=== PATIENT | female | born 1955 | race Caucasian/White ===

== ENCOUNTER 2017-11-10 11:28 | Day surgery (SDC) | payer BC ==
[~2017-11-10] VITALS: Ht 154.9 cm; Wt 88.1 kg
[~2017-11-10 11:28] MED LIST: FURO40; LORCET 5-325 M1 EACH; LOSA50; METO50ER; POTA10T
== END 2017-11-10 13:52 | disposition home or self-care (01) ==
LOC: ORSCSDS 11:28
DX: Z12.11 Encounter for screening for malignant neoplasm of colon (principal); D12.5 Benign neoplasm of sigmoid colon; D12.3 Benign neoplasm of transverse colon; K57.30 Diverticulosis of large intestine without perforation or abscess without bleeding; I10 Essential (primary) hypertension; Z87.891 Personal history of nicotine dependence; E66.01 Morbid (severe) obesity due to excess calories; Z68.38 Body mass index [BMI] 38.0-38.9, adult; Z79.899 Other long term (current) drug therapy
CPT/HCPCS: 88305; J0330; J1980; J2405; J7120

== ENCOUNTER → 2018-11-03 | Outpatient (CLI) | payer BC ==
[2018-11-03 17:38] LABS: BASOPHILS ABSOLUTE AUTO 0.04 K/mm3 (0.00-0.23); BASOPHILS PERCENT AUTO 1 % (0-2); EOSINOPHILS ABSOLUTE AUTO 0.26 K/mm3 (0.00-0.68); EOSINOPHILS PERCENT AUTO 5 % (0-6); Hematocrit 42.6 % (33.0-51.0); Hemoglobin 14.3 g/dL (11.5-16.0); IMMATURE GRAN ABSOLUTE AUTO 0.01 K/mm3 (0.00-0.10); IMMATURE GRAN PERCENT AUTO 0 % (0-1); LYMPHOCYTES ABSOLUTE AUTO 1.83 K/mm3 (0.84-5.20); LYMPHOCYTES PERCENT AUTO 32 % (21-46); MONOCYTES ABSOLUTE AUTO 0.59 K/mm3 (0.16-1.47); MONOCYTES PERCENT AUTO 10 % (4-13); Mean Corpuscular HGB 28.9 pg (26.0-34.0); Mean Corpuscular HGB Conc 33.6 g/dL (31.5-36.5); Mean Corpuscular Volume 86 fL (80-100); NEUTROPHILS ABSOLUTE AUTO 2.95 K/mm3 (1.96-9.15); NEUTROPHILS PERCENT AUTO 52 % (41-73); Platelet Count 289 K/mm3 (150-400); RDW Coefficient Variation 13.2 % (11.7-14.2); RDW Standard Deviation 40.7 fL (35.1-46.3); Red Blood Cell Count 4.94 M/mm3 (3.80-5.20); White Blood Cell Count 5.68 K/mm3 (4.00-11.30)
[2018-11-03 18:30] LABS: Free Thyroxine 0.97 ng/dL (0.70-1.60)
[2018-11-03 18:31] LABS: Alanine Aminotransfer (ALT/SGP 36 U/L (12-78); Albumin/Globulin Ratio 1.1 (0.8-1.8); Alk Phos 109 U/L (50-136); Anion Gap 6 mmol/L (6-16); Aspartate Aminotrans (AST/SGOT 18 U/L (12-37); Bilirubin, Total 0.7 mg/dL (0.1-1.0); Blood Urea Nitrogen 21 mg/dL (8-24); Bun/Creatinine Ratio 30.2 (12.0-20.0); CHOL/HDL RATIO 2.9; CO2, Blood 31 mmol/L (21-32); Calcium, Blood 8.9 mg/dL (8.5-10.1); Chloride, Blood 104 mmol/L (98-108); Cholesterol 203 mg/dL (50-200); Globulin, Blood 3.6 g/dL (2.2-4.0); Glomerular Filtration Rate >60 (60-); Glucose, Blood 92 mg/dL (70-99); HDL Cholesterol 70 mg/dL (>39); LDL/HDL RATIO 1.7; Low Density Lipoprotein Chol 116 mg/dL (0-110); Potassium, Blood 3.7 mmol/L (3.5-5.5); Sodium, Blood 141 mmol/L (136-145); Total Protein, Blood 7.6 g/dL (6.4-8.2); Triglycerides 84 mg/dL (30-160); Very Low Density Lipoprot Chol 16 mg/dL (6-32)
== END ==
LOC: LAB 17:15 → LAB SHORT 17:15
PROVIDERS: Hospitalist
DX: E78.00 Pure hypercholesterolemia, unspecified (principal); I10 Essential (primary) hypertension
CPT/HCPCS: 80053; 80061; 84439; 84443; 85025

== ENCOUNTER 2019-12-06 09:18 | Day surgery (SDC) | payer BC ==
--- NOTE | 2019-12-06 11:05 | NUR ---
TRANSPORTED PT FROM CT SCAN TO ROOM 203 [facility] DIFFICULT[facility]. VSS, PT DENIES QUESTIONS OR CONCERNS. OFFERED FOOD AND FLUID. SUPPLIED WARM BALNKETS. PT WORE MASK IN TRANSITION TO THE FLOOR.
--- NOTE | 2019-12-06 12:24 | NUR ---
Discharge instructions reviewed with patient. Patient verbalizes understanding. Copy given to patient to take home. taking pt back to ct scan for follow up. pt biopsy site remained without swelling or bleeding t/o recovery. pt was mildly sob with activity to bathroom. recovery of sats where within 30sec. sat went down to 91% then back up to 96% w/o needing supplemental oxygen.
== END 2019-12-06 22:46 | disposition home or self-care (01) ==
LOC: CT 09:18
DX: C34.12 Malignant neoplasm of upper lobe, left bronchus or lung (principal); E27.8 Other specified disorders of adrenal gland; E87.6 Hypokalemia; I10 Essential (primary) hypertension; E78.5 Hyperlipidemia, unspecified; Z87.891 Personal history of nicotine dependence; Z79.899 Other long term (current) drug therapy
CPT/HCPCS: 32405; 71045; 77012

== ENCOUNTER 2019-12-28 15:39 | Inpatient (IN) | payer BC ==
[~2019-12-28] VITALS: Ht 154.9 cm; Wt 83.1 kg
[2019-12-28 16:43] LABS: BASOPHILS ABSOLUTE AUTO 0.05 K/mm3 (0.00-0.23); BASOPHILS PERCENT AUTO 0 % (0-2); EOSINOPHILS ABSOLUTE AUTO 0.03 K/mm3 (0.00-0.68); EOSINOPHILS PERCENT AUTO 0 % (0-6); Hematocrit 27.6 % (33.0-51.0); Hemoglobin 8.7 g/dL (11.5-16.0); IMMATURE GRAN ABSOLUTE AUTO 0.14 K/mm3 (0.00-0.10); IMMATURE GRAN PERCENT AUTO 1 % (0-1); LYMPHOCYTES ABSOLUTE AUTO 0.53 K/mm3 (0.84-5.20); LYMPHOCYTES PERCENT AUTO 4 % (21-46); MONOCYTES ABSOLUTE AUTO 0.49 K/mm3 (0.16-1.47); MONOCYTES PERCENT AUTO 4 % (4-13); Mean Corpuscular HGB 25.7 pg (26.0-34.0); Mean Corpuscular HGB Conc 31.5 g/dL (31.5-36.5); Mean Corpuscular Volume 82 fL (80-100); Mean Platelet Volume 9.3 fL (9.1-12.4); NEUTROPHILS ABSOLUTE AUTO 12.31 K/mm3 (1.96-9.15); NEUTROPHILS PERCENT AUTO 91 % (41-73); Platelet Count 536 K/mm3 (150-400); RDW Coefficient Variation 14.5 % (11.7-14.2); RDW Standard Deviation 41.9 fL (35.1-46.3); Red Blood Cell Count 3.38 M/mm3 (3.80-5.20); White Blood Cell Count 13.55 K/mm3 (4.00-11.30)
[2019-12-28 17:01] LABS: Anion Gap 6 mmol/L (6-16); Blood Urea Nitrogen 8 mg/dL (8-24); Bun/Creatinine Ratio 12.9 (12.0-20.0); CO2, Blood 26 mmol/L (21-32); Calcium, Blood 8.6 mg/dL (8.5-10.1); Chloride, Blood 109 mmol/L (98-108); Creatinine, Blood 0.62 mg/dL (0.40-1.00); Glomerular Filtration Rate >60 (60-); Glucose, Blood 122 mg/dL (70-99); Potassium, Blood 3.1 mmol/L (3.5-5.5); Sodium, Blood 141 mmol/L (136-145)
[2019-12-28] MEDS ORDERED: Percocet 5-3251 EACH PO (18:05)
[2019-12-28] MEDS ORDERED: FURO40 PO (18:05)
[2019-12-28] MEDS ORDERED: POTCHL20ER PO (18:05)
[2019-12-28] MEDS ORDERED: METO50 PO (18:06)
[2019-12-28] MEDS ORDERED: LOSARTAN POTAS100 MG PO (18:07)
[2019-12-28] MEDS ORDERED: AMLODIPINE BESY10 MG PO (18:08)
[2019-12-28] MEDS ORDERED: IBU800 M1 PO (18:09)
[2019-12-28] MEDS ORDERED: VITAMIN D350 MCG PO (18:30)
[2019-12-28] MEDS ORDERED: Slo-Niacin250 MG PO (18:30)
[2019-12-28] MEDS ORDERED: B-121000 MC3 PO (18:31)
[2019-12-28] MEDS ORDERED: Fish Oil 10001000 MG PO (18:31)
[2019-12-28] MEDS ORDERED: ALLER-FEX180 MG PO (18:33)
[2019-12-28 18:34] LABS: Alanine Aminotransfer (ALT/SGP 21 U/L (12-78); Albumin, Blood 2.4 g/dL (3.4-5.0); Albumin/Globulin Ratio 0.6 (0.8-1.8); Alk Phos 137 U/L (50-136); Aspartate Aminotrans (AST/SGOT 16 U/L (12-37); Bilirubin, Direct <0.1 mg/dL (0.0-0.3); Bilirubin, Indirect Unable to Calculate mg/dL (0.1-0.7); Bilirubin, Total 0.3 mg/dL (0.1-1.0); Globulin, Blood 4.3 g/dL (2.2-4.0); Total Protein, Blood 6.7 g/dL (6.4-8.2)
[2019-12-28] MEDS ORDERED: Daily Multiple1 EACH PO (18:34)
[2019-12-28] MEDS ORDERED: Glucosamine H1500 MG PO (18:35)
[2019-12-28] MEDS ORDERED: OCUSIGHT PO (18:36)
[2019-12-28 19:16] LABS: Magnesium, Blood 2.1 mg/dL (1.6-2.4)
[2019-12-28 19:33] LABS: Phosphorus, Blood 3.4 mg/dL (2.5-4.9)
[2019-12-28 19:39] LABS: Percent Saturation 7.9 % (15.0-50.0)
[2019-12-28 20:00] LABS: International Normalized Ratio 1.13
[2019-12-28 20:26] LABS: International Normalized Ratio 1.13
[2019-12-28] MEDS ORDERED: OXYC10ER PO (20:45)
--- NOTE | 2019-12-29 04:18 | NUR ---
SHIFT SUMMARY PT WAS ADMITTED 12/28/19 APPROX 2029 WITH L FEMUR FX. PAIN HAS BEEN MANAGED WITH IV PAIN MED PER ORDER; SEE EMAR. DISCUSSED PAIN MANAGEMENT WITH HOSPITALIST CARDIAC RN. BIOX IN PLACE; PT ON 1-3L O2 NC MAINTAINING O2 >92%. TELE IN PLACE. EXTERNAL FEMALE CATHETER HAS BEEN USED DURING THE NIGHT. POTASSIUM WAS LOW ON ADMIT; PT RECEIVED IV POTASSIUM PER ORDER; SEE EMAR. PT WAS ABLE TO GET SOME REST AFTER PAIN WAS CONTROLLED. HAS BEEN NPO SINCE MIDNIGHT PER ORDER.
[2019-12-29 04:49] LABS: BASOPHILS ABSOLUTE AUTO 0.03 K/mm3 (0.00-0.23); BASOPHILS PERCENT AUTO 0 % (0-2); EOSINOPHILS PERCENT AUTO 0 % (0-6); Hematocrit 27.6 % (33.0-51.0); Hemoglobin 8.4 g/dL (11.5-16.0); IMMATURE GRAN ABSOLUTE AUTO 0.19 K/mm3 (0.00-0.10); IMMATURE GRAN PERCENT AUTO 1 % (0-1); LYMPHOCYTES ABSOLUTE AUTO 0.72 K/mm3 (0.84-5.20); LYMPHOCYTES PERCENT AUTO 5 % (21-46); MONOCYTES ABSOLUTE AUTO 0.46 K/mm3 (0.16-1.47); MONOCYTES PERCENT AUTO 3 % (4-13); Mean Corpuscular HGB 25.1 pg (26.0-34.0); Mean Corpuscular HGB Conc 30.4 g/dL (31.5-36.5); Mean Corpuscular Volume 83 fL (80-100); Mean Platelet Volume 9.6 fL (9.1-12.4); NEUTROPHILS ABSOLUTE AUTO 13.55 K/mm3 (1.96-9.15); NEUTROPHILS PERCENT AUTO 91 % (41-73); Platelet Count 605 K/mm3 (150-400); RDW Coefficient Variation 14.4 % (11.7-14.2); Red Blood Cell Count 3.34 M/mm3 (3.80-5.20); White Blood Cell Count 14.95 K/mm3 (4.00-11.30)
[2019-12-29 05:06] LABS: Alanine Aminotransfer (ALT/SGP 20 U/L (12-78); Albumin, Blood 2.3 g/dL (3.4-5.0); Albumin/Globulin Ratio 0.5 (0.8-1.8); Alk Phos 128 U/L (50-136); Anion Gap 4 mmol/L (6-16); Aspartate Aminotrans (AST/SGOT 14 U/L (12-37); Bilirubin, Total 0.3 mg/dL (0.1-1.0); Blood Urea Nitrogen 11 mg/dL (8-24); Bun/Creatinine Ratio 22.8 (12.0-20.0); CO2, Blood 27 mmol/L (21-32); Calcium, Blood 8.9 mg/dL (8.5-10.1); Chloride, Blood 109 mmol/L (98-108); Creatinine, Blood 0.48 mg/dL (0.40-1.00); Globulin, Blood 4.3 g/dL (2.2-4.0); Glomerular Filtration Rate >60 (60-); Glucose, Blood 152 mg/dL (70-99); Potassium, Blood 4.8 mmol/L (3.5-5.5); Sodium, Blood 140 mmol/L (136-145); Total Protein, Blood 6.6 g/dL (6.4-8.2)
--- NOTE | 2019-12-29 05:53 | NUR ---
HEART RATE RN NOTIFIED BY TELE MONITOR OF HEART RATE TEMPORARILY INCREASING FROM 80'S TO 150'S FOR APPROX 6 SECONDS THEN BACK TO 80'S. PRINT OUT SENT TO FLOOR AND PUT IN PT CHART. HOSPITALIST NOTIFIED. NO FURTHER ORDERS. WCTM.
--- NOTE | 2019-12-29 12:16 | NUR ---
History, Chart, Medications and Allergies reviewed before start of procedure. Patient confirms NPO status and agrees with scheduled surgery. Pre-Op teaching done. Pt verbalizes understanding. LS DIMINISHED T/O. PT APPEARS SOB WITH SPEAKING BUT DENIES FEELING SOB. PT UNABLE TO SPEAK IN FULL SENTENCES.
--- NOTE | 2019-12-29 12:42 | NUR ---
COMPRESSION STOCKINGS AND PAS STOCKINGS DEFERRED FOR SURGICAL STAFF ONCE PT IS SEDATED DUE TO PT LEGS EXTREMELY CLAMMY AND PT IS PAINFUL.
--- NOTE | 2019-12-29 13:07 | NUR ---
PT TO OR
--- NOTE | 2019-12-29 16:21 | NUR ---
PT ARRIVED TO UNIT FROM PACU REPORTS GONZALEZ IMPROVED, RATING 5/10. REPORTS L LOWER BACK PAIN AT 2/10. DRESSINGS TO LLE X3 CDI. VSS. TXA INFUSING PER ORDERS.
--- NOTE | 2019-12-29 16:38 | NUR ---
PT DECLINED OFFER FOR TYLENOL FOR GONZALEZ PAIN STATED FELT OKAY. TOLERATING CLEAR LIQUIDS.
--- NOTE | 2019-12-29 17:20 | NUR ---
SUMMARY PT ARRIVED BACK TO UNIT FROM PACU THIS AFTERNOON. A&OX4. REPORTS NO PAIN TO LLE. REPORTS GONZALEZ PAIN TOLERABLE. DENIES NEEDS FOR PAIN MEDS AT THIS TIME. ABLE TO MOVE LEGS AND REPORTS FULL SENSATION. WORKING ON COMPUTER. VSS. CALL LIGHT IN REACH. IV FLUIDS INFUSING PER ORDERS.
--- NOTE | 2019-12-29 18:07 | NUR ---
TURNED OVER CARE TO NIK Pendleton RN.
--- NOTE | 2019-12-30 04:53 | NUR ---
SHIFT SUMMARY POD 1 L FEMUR FX REPAIR AA0X4, VSS. PT ABLE TO AMBULATE TO RESTROOM WITH FWW. TOLERATES WELL REPORTS MINIMAL DISCOMFORT WITH MOVEMENT. DRESSINGS CDI. PT TITRATED TO 1L OXYGEN, SATS ABOVE 92% ENCOURAGED DEEP BREATHING. TOLERATING PO WELL. PT VOIDING WELL.
[2019-12-30 04:54] LABS: BASOPHILS ABSOLUTE AUTO 0.03 K/mm3 (0.00-0.23); BASOPHILS PERCENT AUTO 0 % (0-2); EOSINOPHILS PERCENT AUTO 0 % (0-6); Hematocrit 28.8 % (33.0-51.0); Hemoglobin 8.6 g/dL (11.5-16.0); IMMATURE GRAN ABSOLUTE AUTO 0.23 K/mm3 (0.00-0.10); IMMATURE GRAN PERCENT AUTO 1 % (0-1); LYMPHOCYTES ABSOLUTE AUTO 0.92 K/mm3 (0.84-5.20); LYMPHOCYTES PERCENT AUTO 5 % (21-46); MONOCYTES ABSOLUTE AUTO 1.01 K/mm3 (0.16-1.47); MONOCYTES PERCENT AUTO 5 % (4-13); Mean Corpuscular HGB 24.6 pg (26.0-34.0); Mean Corpuscular HGB Conc 29.9 g/dL (31.5-36.5); Mean Corpuscular Volume 82 fL (80-100); Mean Platelet Volume 9.3 fL (9.1-12.4); NEUTROPHILS ABSOLUTE AUTO 17.12 K/mm3 (1.96-9.15); NEUTROPHILS PERCENT AUTO 89 % (41-73); Platelet Count 647 K/mm3 (150-400); RDW Coefficient Variation 14.6 % (11.7-14.2); RDW Standard Deviation 42.6 fL (35.1-46.3); White Blood Cell Count 19.31 K/mm3 (4.00-11.30)
[2019-12-30 05:11] LABS: Anion Gap 5 mmol/L (6-16); Blood Urea Nitrogen 18 mg/dL (8-24); Bun/Creatinine Ratio 26.8 (12.0-20.0); CO2, Blood 27 mmol/L (21-32); Calcium, Blood 8.8 mg/dL (8.5-10.1); Chloride, Blood 108 mmol/L (98-108); Creatinine, Blood 0.67 mg/dL (0.40-1.00); Glomerular Filtration Rate >60 (60-); Glucose, Blood 107 mg/dL (70-99); Magnesium, Blood 2.2 mg/dL (1.6-2.4); Potassium, Blood 4.5 mmol/L (3.5-5.5); Sodium, Blood 140 mmol/L (136-145)
--- NOTE | 2019-12-30 10:29 | NUR ---
Pt sitting in chair upon arrival. Pt is A&O and reports a tolerable 3/10 pain in her leg from the surgery. Pt denies nause and anxiety. Pt appears mildly dyspneic as evidenced by short 3 to 4 word sentences and work of breathing when speaking. Engaged in therapeutic listening as Pt reports having cancer. Pt reports plan to start radiation treatment soon and eventually targeted iminuotherapy treatment. Listened as Pt reports her cancer is not curitive but can help slow the progression. Suggested the importance of planning for the future and having support in place for the days she needs assistance. Pt reports adequate support. Discussed consideration of advanced directive and the importance of assigning a healthcare warehouse representative. Pt reports recently obtaining an AD with her father's encouragement and plans to complete soon. Educated Pt on the 2 options of making AD official either by notary or 2 witnesses. Pt reports no concerns at this time and expresses appreciation of visit. Spoke with Bedside AKHIL Wolff and discussed case. Palliative Care will remain available.
--- NOTE | 2019-12-30 19:36 | NUR ---
SHIFT SUMMARY PT IS POD# 1 FROM A L FEMUR REPAIR. SHE HAS BEEN A 1 PERSON ASSIST T/O THE DAY. SHE IS ALERT AND ORIENTED. PAIN IS MANAGED WITH OXYCODONE AND TORADOL. PT REPORTS TORADOL IS MOST EFFECTIVE FOR PAIN MANAGEMENT. PLAN FOR DISCHARGE HOME WITH HOME HEALTH TOMORROW. PT IS TOLERATING FOOD AND FLUIDS. VSS. WILL MONITOR UNTIL REPORT TO ONCOMING RN.
--- NOTE | 2019-12-31 05:50 | NUR ---
SHIFT SUMMARY POD 2 L FEMUR REPAIR. AA0X4 VSS. PT TOLERATING PO WELL. DENIES NAUSEA AND REPORTS MINIMAL PAIN MEDICATED PER EMAR. DRESSING CDI. ON ROOM AIR, DENIES SHORTNESS OF BREATH. PLAN IS TO DC WITH HOME HEALTH TODAY.
[2019-12-31] MEDS ORDERED: ENOX40I SC (11:59)
--- NOTE | 2019-12-31 12:35 | NUR ---
DISCHARGE PT PROVIDED WITH WRITTEN AND VERBAL DISCHARGE INSTRUCTIONS. SHE REPORTED UNDERSTANDING INSTRUCTIONS. PT WAS SEEN BY NAHOMI VILLAREAL WITH HOME HEALTH; PT DECLINED HOME HEALTH. PT WAS EDUCATED THAT WE COULD GET A SCRIPT FOR THERAPY FROM DR. LESTER. PT DECLINED AND VERBALIZED SHE WOULD FOLLOW UP WITH HER ONCOLOGIST OR PCP FOR PHYSICAL THERAPY ORDERS; SINCE SHE DID NOT WISH TO WAIT ANY LONGER FOR DISCHARGE. PT WAS PROVIDED WITH DRESSINGS AND EDUCATED ABOUT INCISION CARE. LOVENOX [facility] WAS CALLED PT'S PHARMACY. PT WAS EDUCATED ABOUT ADMINISTERING LOVENOX INJECTIONS AND REPORTED FEELING COMFORTABLE WITH PROCESS. PT ESCORTED OUT IN W/C BY MICHELLE STUDENT NURSE. PT REPORTED PAIN MANAGED AT TIME OF DISCHARGE.
--- NOTE | 2019-12-31 12:36 | NUR ---
DISCHARGE PT RECIEVED EDUCATOIN ABOUT WOUND MANAGEMENT AND S/S OF INFECTION/COMPLICATIONS. SHE WAS INSTRUCTED ON DRESSING CHANGES AND THE NEW MEDICATOIN (LOVENOX). SHE PROVIDED VERBAL AND NONVERBAL RESPONSE FOR UNDERSTANDING THE DISHCHARGE INFORMATION. SHE WAS PROVIDED WITH 3 DRESSING CHANGES. SHE DECLINED HOME HEALTH AND SHE VERBALIZED THAT SHE WOULD FOLLOW UP WITH HER PHYSICIAN AND ONCOLOGIST FOR FURTHER ORDERS FOR PHYSICAL THERAPY. SHE HAS ALL OF HER BELONGINGS, SHE WAS ESCORTED OUT TO VEHICLE IN A W/C. SHE GOT INTO THE VEHICLE WITHOUT INCIDENT.
== END 2019-12-31 12:32 | disposition home or self-care (01) | DRG 480 ==
LOC: ER 15:39 → BC 19:10 → SURS 19:10
PROVIDERS: Emergency Medicine; Internal Medicine; Nurse Practitioner Acute Care; Orthopaedic Surgery; ADMIT Internal Medicine
PROC: 0QS734Z Reposition Left Upper Femur with Internal Fixation Device, Percutaneous Approach (ICD-10-PCS; principal; 2019-12-29 12:30)
DX: M84.552A Pathological fracture in neoplastic disease, left femur, initial encounter for fracture (principal); J18.9 Pneumonia, unspecified organism; J96.01 Acute respiratory failure with hypoxia; C34.90 Malignant neoplasm of unspecified part of unspecified bronchus or lung; C79.51 Secondary malignant neoplasm of bone; E87.6 Hypokalemia; I10 Essential (primary) hypertension; K59.03 Drug induced constipation; M17.0 Bilateral primary osteoarthritis of knee; E78.5 Hyperlipidemia, unspecified; Z87.891 Personal history of nicotine dependence; D50.0 Iron deficiency anemia secondary to blood loss (chronic)
CPT/HCPCS: 36415; 71045; 73552; 73700; 76377; 80048; 80053; 80076; 82607; 82728; 82746; 83540; 83550; 83605; 83735; 84100; 84145; 85025; 85610; 85730; 86850; 86900; 86901; 90732; 93005; 93010; 94762; 96374-59; 96375-59; 97110; 97116; 97162; 97165; 97535; 99285-25; A9270; A9270-GY; C1713; C1769; J0690; J0696; J1100; J1170; J1650; J1885; J2250; J2405; J2704; J3010; J3480; J7040; J7120

== ENCOUNTER 2020-01-16 14:21 | Inpatient (IN) | payer BC ==
[~2020-01-16] VITALS: Ht 152.4 cm; Wt 80.0 kg
[~2020-01-16 14:21] MED LIST changes: +ALLER-FEX180 MG PO; +AMLODIPINE BESY10 MG PO; +B-121000 MC3 PO; +Daily Multiple1 EACH PO; +ENOX40I SC; -FURO40; +FURO40 PO; +Fish Oil 10001000 MG PO; +Glucosamine H1500 MG PO; +IBU800 M1 PO; -LORCET 5-325 M1 EACH; -LOSA50; +LOSARTAN POTAS100 MG PO; +METO50 PO; -METO50ER; +OCUSIGHT PO; +Oxycodone HCl20 M1 PO; -POTA10T; +POTCHL20ER PO; +Percocet 5-3251 EACH PO; +Slo-Niacin250 MG PO; +VITAMIN D350 MCG PO
[2020-01-16 14:56] LABS: BASOPHILS ABSOLUTE AUTO 0.03 K/mm3 (0.00-0.23); BASOPHILS PERCENT AUTO 0 % (0-2); EOSINOPHILS ABSOLUTE AUTO 0.06 K/mm3 (0.00-0.68); EOSINOPHILS PERCENT AUTO 0 % (0-6); Hematocrit 28.2 % (33.0-51.0); Hemoglobin 8.5 g/dL (11.5-16.0); IMMATURE GRAN ABSOLUTE AUTO 0.27 K/mm3 (0.00-0.10); IMMATURE GRAN PERCENT AUTO 2 % (0-1); LYMPHOCYTES ABSOLUTE AUTO 0.47 K/mm3 (0.84-5.20); LYMPHOCYTES PERCENT AUTO 3 % (21-46); MONOCYTES ABSOLUTE AUTO 1.09 K/mm3 (0.16-1.47); MONOCYTES PERCENT AUTO 7 % (4-13); Mean Corpuscular HGB 23.7 pg (26.0-34.0); Mean Corpuscular HGB Conc 30.1 g/dL (31.5-36.5); Mean Corpuscular Volume 79 fL (80-100); Mean Platelet Volume 9.3 fL (9.1-12.4); NEUTROPHILS ABSOLUTE AUTO 13.21 K/mm3 (1.96-9.15); NEUTROPHILS PERCENT AUTO 87 % (41-73); Platelet Count 466 K/mm3 (150-400); RDW Coefficient Variation 14.8 % (11.7-14.2); RDW Standard Deviation 42.3 fL (35.1-46.3); Red Blood Cell Count 3.59 M/mm3 (3.80-5.20); White Blood Cell Count 15.13 K/mm3 (4.00-11.30)
[2020-01-16 15:08] LABS: Alanine Aminotransfer (ALT/SGP 32 U/L (12-78); Albumin, Blood 2.2 g/dL (3.4-5.0); Albumin/Globulin Ratio 0.5 (0.8-1.8); Alk Phos 174 U/L (50-136); Anion Gap 5 mmol/L (6-16); Aspartate Aminotrans (AST/SGOT 21 U/L (12-37); Bilirubin, Total 0.4 mg/dL (0.1-1.0); Blood Urea Nitrogen 9 mg/dL (8-24); Bun/Creatinine Ratio 13.3 (12.0-20.0); CO2, Blood 27 mmol/L (21-32); Calcium, Blood 7.5 mg/dL (8.5-10.1); Chloride, Blood 98 mmol/L (98-108); Creatinine, Blood 0.68 mg/dL (0.40-1.00); Globulin, Blood 4.2 g/dL (2.2-4.0); Glomerular Filtration Rate >60 (60-); Glucose, Blood 109 mg/dL (70-99); Potassium, Blood 4.1 mmol/L (3.5-5.5); Sodium, Blood 130 mmol/L (136-145); Total Protein, Blood 6.4 g/dL (6.4-8.2)
[2020-01-16 17:01] LABS: International Normalized Ratio 1.17; Prothrombin Time Results 12.4 Sec (9.7-11.5)
--- NOTE | 2020-01-17 04:15 | NUR ---
SHIFT SUMMARY PT HAS RESTED WELL THIS SHIFT WITHOUT DISTRESS. SHE HAS DENIED NEEDS WHEN ASKED, AND HAS SLEPT MOST OF THE NIGHT. SATS HAVE BEEN MAINTAINED ABOVE 92% ON 3L O2. LUNG SOUNDS ARE DIMINISHED. RESP ARE E/U. SHE DENIES SOB WHEN ASKED. PLAN IS FOR THORANCENTESIS TODAY. VITALS STABLE. IV LASIKS ADMINISTERED DURING DAYSHIFT. PT HAS HAD ADEQUATE OUTPUT. IV ABX ADMISNISTERED DURING DAYSHIFT. PT SWABBED FOR COVID THIS SHIFT. RAPID RESULTS WERE NEGATIVE. NO ACUTE CHANGES TO REPORT OVERNIGHT. BED IN LOWEST POSITION, CALL LIGHT WITHIN REACH. WILL CONTINUE TO MONITOR AND REPORT TO ONCOMING RN.
[2020-01-17 05:20] LABS: BASOPHILS ABSOLUTE AUTO 0.03 K/mm3 (0.00-0.23); BASOPHILS PERCENT AUTO 0 % (0-2); EOSINOPHILS ABSOLUTE AUTO 0.15 K/mm3 (0.00-0.68); EOSINOPHILS PERCENT AUTO 1 % (0-6); Hemoglobin 7.8 g/dL (11.5-16.0); IMMATURE GRAN ABSOLUTE AUTO 0.16 K/mm3 (0.00-0.10); IMMATURE GRAN PERCENT AUTO 1 % (0-1); LYMPHOCYTES ABSOLUTE AUTO 0.37 K/mm3 (0.84-5.20); LYMPHOCYTES PERCENT AUTO 3 % (21-46); MONOCYTES ABSOLUTE AUTO 1.15 K/mm3 (0.16-1.47); MONOCYTES PERCENT AUTO 9 % (4-13); Mean Corpuscular HGB 23.6 pg (26.0-34.0); Mean Corpuscular Volume 79 fL (80-100); Mean Platelet Volume 9.6 fL (9.1-12.4); NEUTROPHILS ABSOLUTE AUTO 10.37 K/mm3 (1.96-9.15); NEUTROPHILS PERCENT AUTO 85 % (41-73); Platelet Count 380 K/mm3 (150-400); RDW Coefficient Variation 14.8 % (11.7-14.2); RDW Standard Deviation 42.7 fL (35.1-46.3); White Blood Cell Count 12.23 K/mm3 (4.00-11.30)
[2020-01-17 05:43] LABS: Lactate Dehydrogenase (Ld),Bld 240 U/L (100-240)
[2020-01-17 05:44] LABS: Alanine Aminotransfer (ALT/SGP 27 U/L (12-78); Albumin/Globulin Ratio 0.5 (0.8-1.8); Alk Phos 159 U/L (50-136); Anion Gap 7 mmol/L (6-16); Aspartate Aminotrans (AST/SGOT 15 U/L (12-37); Bilirubin, Total 0.4 mg/dL (0.1-1.0); Blood Urea Nitrogen 8 mg/dL (8-24); Bun/Creatinine Ratio 13.4 (12.0-20.0); CO2, Blood 27 mmol/L (21-32); Calcium, Blood 7.2 mg/dL (8.5-10.1); Chloride, Blood 98 mmol/L (98-108); Glomerular Filtration Rate >60 (60-); Glucose, Blood 108 mg/dL (70-99); Potassium, Blood 3.5 mmol/L (3.5-5.5); Sodium, Blood 132 mmol/L (136-145)
--- NOTE | 2020-01-17 09:45 | NUR ---
UPDATED PATIENT FATHER, MAGO, ON CONDITION. WILL STOP BY BEFORE LUNCH TO SEE. PATIENT NOTIFIED.
[2020-01-17 10:30] LABS: Percent Saturation 8.5 % (15.0-50.0)
--- NOTE | 2020-01-17 10:35 | NUR ---
PER DR.ABRIO SHOOK TO GIVE MS CONTIN 15 MG P.O. NOW. WILL ORDER.
--- NOTE | 2020-01-17 11:45 | NUR ---
HAT PLACED IN BSC FOR STOOL SEPARATION
--- NOTE | 2020-01-17 16:42 | NUR ---
Initial spiritual care note: Zelda appeared emotionally withdrawn. She is very soft-spoken and said very little. She did not appear to want conversation. However, she is clearly facing a great deal medically. I will continue to attmept to gain rapport, but do not which to be intrusive. I will see how tomorrow plays out.
--- NOTE | 2020-01-17 17:30 | NUR ---
ALERT. ORIENTED. SPEAKS IN BREATHY WHISPER. HX LUNG CA WITH LAST RADIATION TREATMENT LAST FRIDAY. HX LEFT HIP REPAIR W/TWO SMALL SURGICAL AREAS DRY INTACT, HEELING WELL AND NO SIGNS OF INFECTION. ON CONTINUOUS SATS. DID NOT GET THORACENTESIS RADIOLOGY FELT NOT ENOUGH FLUID THERE. PLACED ON LONG ACTING PAIN MEDS W/OXY FOR BREAKTHROUGH W/PATIENT STATING HELPING MORE, BUT DOES NOT GET RID OF PAIN COMPLETELY. AMBULATORY IN ROOM W/WALKER. WCTM
--- NOTE | 2020-01-17 18:07 | NUR ---
HOUSE JOSÉ MIGUEL VERDIN NOTIFIED NEED IV. THIS RN ATTEMPT AND DID NOT GET.
[2020-01-18 04:28] LABS: BASOPHILS ABSOLUTE AUTO 0.04 K/mm3 (0.00-0.23); BASOPHILS PERCENT AUTO 0 % (0-2); EOSINOPHILS ABSOLUTE AUTO 0.17 K/mm3 (0.00-0.68); EOSINOPHILS PERCENT AUTO 2 % (0-6); Hematocrit 23.4 % (33.0-51.0); Hemoglobin 7.1 g/dL (11.5-16.0); IMMATURE GRAN ABSOLUTE AUTO 0.13 K/mm3 (0.00-0.10); IMMATURE GRAN PERCENT AUTO 1 % (0-1); LYMPHOCYTES ABSOLUTE AUTO 0.43 K/mm3 (0.84-5.20); LYMPHOCYTES PERCENT AUTO 4 % (21-46); MONOCYTES ABSOLUTE AUTO 1.18 K/mm3 (0.16-1.47); MONOCYTES PERCENT AUTO 11 % (4-13); Mean Corpuscular HGB 23.7 pg (26.0-34.0); Mean Corpuscular HGB Conc 30.3 g/dL (31.5-36.5); Mean Corpuscular Volume 78 fL (80-100); Mean Platelet Volume 9.2 fL (9.1-12.4); NEUTROPHILS ABSOLUTE AUTO 8.93 K/mm3 (1.96-9.15); NEUTROPHILS PERCENT AUTO 82 % (41-73); Platelet Count 396 K/mm3 (150-400); RDW Coefficient Variation 15.1 % (11.7-14.2); RDW Standard Deviation 41.9 fL (35.1-46.3); White Blood Cell Count 10.88 K/mm3 (4.00-11.30)
[2020-01-18 04:47] LABS: Alanine Aminotransfer (ALT/SGP 33 U/L (12-78); Albumin, Blood 1.9 g/dL (3.4-5.0); Albumin/Globulin Ratio 0.5 (0.8-1.8); Alk Phos 146 U/L (50-136); Anion Gap 8 mmol/L (6-16); Aspartate Aminotrans (AST/SGOT 25 U/L (12-37); Bilirubin, Total 0.3 mg/dL (0.1-1.0); Blood Urea Nitrogen 9 mg/dL (8-24); CO2, Blood 27 mmol/L (21-32); Calcium, Blood 7.2 mg/dL (8.5-10.1); Chloride, Blood 98 mmol/L (98-108); Globulin, Blood 3.8 g/dL (2.2-4.0); Glomerular Filtration Rate >60 (60-); Glucose, Blood 116 mg/dL (70-99); Potassium, Blood 3.7 mmol/L (3.5-5.5); Sodium, Blood 133 mmol/L (136-145); Total Protein, Blood 5.7 g/dL (6.4-8.2)
--- NOTE | 2020-01-18 06:38 | NUR ---
SHIFT SUMMARY PATIENT ALERT AND ORIENTED. PATIENT MEDICATED PER EMAR FOR PAIN. LUNG SOUNDS DEMINISHED ON THE LEFT SIDE. PATIENT DOES NOT COMPLAIN OF SOB. PATIENT TAKEN TO X-RAY. IV PATENT AND FLUSHED. BED IN LOWEST POSITION WITH WHEELS LOCKED. REPORT GIVEN TO ONCOMING RN.
[2020-01-18] MEDS ORDERED: DOCU100 PO (11:08)
[2020-01-18] MEDS ORDERED: MIRALAX17 GM PO (11:09)
[2020-01-18] MEDS ORDERED: AMOCLA875 PO (11:10)
[2020-01-18] MEDS ORDERED: MORP15ER PO (11:10)
[2020-01-18] MEDS ORDERED: SENN187 PO (11:10)
[2020-01-18] MEDS ORDERED: FERROUS GLUCON324 MG PO (11:15)
--- NOTE | 2020-01-18 14:09 | NUR ---
PATIENT AWARE OF MEDS AT [facility] AND SHE HAS TO TAKE HARD COPY RX THERE TO GET HER MS CONTIN. REVIEW ALL MEDS. AWARE 2 APPTS FOR F/U HAVE BEEN MADE. PATIENT DAD BRINGS IN OXYGEN TANK WITHOUT REGULATOR. LIAM LUNA NOTIFIED SO SHE CAN CALL [facility] TO BRING IN OXYGENA ND REVIEW WITH BOTH HOW TO USE OXYGEN. ADELE LANDAVERDE HERE WITH PALLIATIVE CARE. WILL W/C PATIENT OUT WHEN READY
--- NOTE | 2020-01-18 14:30 | NUR ---
REVIEWED ALL MEDS W/PATIENT. AWARE MS CONTIN HAS INCREASED TO TID AND NEEDS TO TAKE; WHEREAS, OXY IS IF NEEDED AND NOT TO TAKE TOGETHER. ADVISED TO KEEP A NOTEBOOK OF WHEN TAKING NON SCHEDULED MEDS AND WHAT HER PAIN LEVEL IS. PATIENT NEEDS TO REVIEW PAIN MEDS WITH HER PCP WHEN FOLLOWING UP AND IF THEY ARE HELPING. PATIENT VERBALIZES UNDERSTANDING.
--- NOTE | 2020-01-18 14:33 | NUR ---
IN W/C DOWN TO POV W/DRAFTING INSTRUCTOR. FATHER DRIVING. AWARE TO KEEP TRACK IF MEDS ARE HELPING OR NOT AND REPORT TO PCP.
--- NOTE | 2020-01-18 14:40 | NUR ---
Clinical Visit: Asked by drip box tender to see patient for disease education and for symptom management. Hay Stacker Operator states that she has not been well managed and may need additional medication. Visit is requested. Pt is alert, oriented. She is being discharged today back home. She has non-small cell lung cancer. She has been undergoing palliative radiation and targeted immunotherapy, under the care of Dr. Mott. 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 Pt has been complaining of uncontrolled pain today. Pt reports 6/10 pain. She states that this is the best pain control she has had. She was started on MS Contin 15mg TID. Reviewed long acting pain medication with her and her father (who is her appointed decision maker). Questions answered. Reviewed this will her her base coverage for pain, and using the roxicodone tablets for breakthrough pain. Breakthough pain is discussed and explained. She has not been on long acting pain medication before this admission. Instructed to continue stool softeners and bowel care. Instructed on 0-10 pain scale and keeping a log of her pain level, along with what she has been taking. Instructed to write down her pain level before and about 1 hour after taking medication to trend her pain and to see what is working. Instructed to take the medication log to her next oncology appointment for medication adjustments for her comfort. She and her father verbalized understanding for this instruction. Pt seems to be unclear about her cancer treatments. She reports having one more radiation treatment. She was supposed to have this yesterday, however, she has been in the hospital since Friday. She is unaware of what will happen with her treatment next. She does not know about her prognosis. Instructed to ask Dr. Mott about this during her next appointment. Educated on advance directives. She states that she has one at home that is not filled out and complete. Discussed POLST form. Pt's father, Humble, is familiar with POLST forms and has one of his own at home on the fridge. He is encouraging his daughter to fill one out. This is provided, along with an extra copy for his . Pt is living with her parents at this time. She usually doesn't, however, she needed help. Parents are providing meals and assistance. She is ambulatory with a walker and still recovering from hip fracture repair. No other concerns. Pt is happy to be going home today and verbalizes understanding of her instructions. Will remain available. Pt high risk for readmission for worsening of disease process and symptom control. It does not appear that advanced care planning has been done by the family and the pt.
--- NOTE | 2020-01-18 16:10 | NUR ---
Follow-up spiritual care note: Zelda was withdrawn again this morning. She would not engage in conversation, rarely looked at me, and responded in one word answers or not at all. She was slowly trying to dress herself and appeared frail/weak. She declined assistance. She did say she was currently living with her father and did not like this aspect of her illness. She would not elaborate. I made request for palliative care to see pt before d/c.
== END 2020-01-18 14:31 | disposition home or self-care (01) | DRG 871 ==
LOC: ER 14:21 → MEDS 14:22 → ENPENDDIS 01-18 09:00 → MEDS 01-18 14:31
PROVIDERS: Internal Medicine; Nurse Practitioner Acute Care; Physician Assistant; ADMIT Internal Medicine
DX: A41.9 Sepsis, unspecified organism (principal); J18.9 Pneumonia, unspecified organism; J96.21 Acute and chronic respiratory failure with hypoxia; J98.11 Atelectasis; C34.12 Malignant neoplasm of upper lobe, left bronchus or lung; C78.7 Secondary malignant neoplasm of liver and intrahepatic bile duct; C79.51 Secondary malignant neoplasm of bone; J90 Pleural effusion, not elsewhere classified; G89.29 Other chronic pain; I10 Essential (primary) hypertension; E78.5 Hyperlipidemia, unspecified; Z51.5 Encounter for palliative care; Z92.3 Personal history of irradiation; Z87.891 Personal history of nicotine dependence
CPT/HCPCS: 36415; 71045; 71046; 76604; 80053; 82728; 83540; 83550; 83605; 83615; 83880; 84145; 85025; 85610; 85730; 93005; 93010; 94762; 96360; 97110; 97116; 97162; 99285-25; A9270-GY; J0456; J0696; J1940; J2916; J3010; J7030; J7050; U0002

== ENCOUNTER 2020-04-03 08:20 | Emergency (ER) | payer BC ==
[~2020-04-03] VITALS: Ht 154.9 cm; Wt 59.0 kg
[~2020-04-03 08:20] MED LIST changes: +AMOCLA875 PO; +DOCU100 PO; -Daily Multiple1 EACH PO; +FERROUS GLUCON324 MG PO; +Klor-Con 1010 MEQ PO; +MIRALAX17 GM PO; +MORP15ER PO; +MULTI VITAMIN1 EACH PO; +SENN187 PO; +ZOFRAN8 MG PO
[2020-04-03 09:47] LABS: Hematocrit 25.1 % (33.0-51.0); Hemoglobin 7.6 g/dL (11.5-16.0); Mean Corpuscular HGB 25.9 pg (26.0-34.0); Mean Corpuscular HGB Conc 30.3 g/dL (31.5-36.5); Mean Corpuscular Volume 86 fL (80-100); Mean Platelet Volume 11.3 fL (9.1-12.4); RDW Standard Deviation 57.1 fL (35.1-46.3); Red Blood Cell Count 2.93 M/mm3 (3.80-5.20); White Blood Cell Count 6.55 K/mm3 (4.00-11.30)
[2020-04-03 09:53] LABS: Alanine Aminotransfer (ALT/SGP 23 U/L (12-78); Albumin, Blood 2.1 g/dL (3.4-5.0); Albumin/Globulin Ratio 0.5 (0.8-1.8); Alk Phos 384 U/L (50-136); Anion Gap 11 mmol/L (6-16); Aspartate Aminotrans (AST/SGOT 34 U/L (12-37); Bilirubin, Total 1.1 mg/dL (0.1-1.0); Blood Urea Nitrogen 25 mg/dL (8-24); Bun/Creatinine Ratio 47.2 (12.0-20.0); CO2, Blood 24 mmol/L (21-32); Calcium, Blood 7.5 mg/dL (8.5-10.1); Chloride, Blood 101 mmol/L (98-108); Creatinine, Blood 0.53 mg/dL (0.40-1.00); Globulin, Blood 4.3 g/dL (2.2-4.0); Glomerular Filtration Rate >60 (60-); Glucose, Blood 111 mg/dL (70-99); Magnesium, Blood 1.9 mg/dL (1.6-2.4); Potassium, Blood 3.1 mmol/L (3.5-5.5); Sodium, Blood 136 mmol/L (136-145); Total Protein, Blood 6.4 g/dL (6.4-8.2)
[2020-04-03 10:15] LABS: Platelet Count 47 K/mm3 (150-400)
[2020-04-03 10:33] LABS: BAND PERCENT MAN 2 % (0-8); BASOPHILS PERCENT MAN 0 % (0-2); EOSINOPHILS PERCENT MAN 0 % (0-6); LYMPHOCYTES ABSOLUTE MAN 0.26 K/mm3 (0.84-5.20); LYMPHOCYTES PERCENT MAN 4 % (21-46); MONOCYTES ABSOLUTE MAN 0.19 K/mm3 (0.16-1.47); MONOCYTES PERCENT MAN 3 % (4-13); NEUTROPHILS ABSOLUTE MAN 6.09 K/mm3 (1.96-9.15); SEG NEUTROPHILS PERCENT MAN 91 % (41-73); TOTAL CELLS COUNTED 100
== END 2020-04-03 13:40 | disposition home or self-care (01) ==
LOC: ER 08:20
PROVIDERS: Emergency Medicine
DX: R11.2 Nausea with vomiting, unspecified (principal); E87.6 Hypokalemia; E86.0 Dehydration; Z92.21 Personal history of antineoplastic chemotherapy; C34.90 Malignant neoplasm of unspecified part of unspecified bronchus or lung; C78.7 Secondary malignant neoplasm of liver and intrahepatic bile duct; C79.51 Secondary malignant neoplasm of bone; I10 Essential (primary) hypertension; Z79.899 Other long term (current) drug therapy; Z87.891 Personal history of nicotine dependence
CPT/HCPCS: 36415; 71045; 80053; 83735; 85025; 93005; 93010; A9270; J0780; J7030